=== PATIENT | female | born 1955 | race Caucasian/White ===

== ENCOUNTER 2016-06-01 19:23 | Emergency (ER) | payer SELFPAY ==
[~2016-06-01] VITALS: Ht 157.5 cm; Wt 74.8 kg
[~2016-06-01 19:23] MED LIST: AMT25 PO; ASPI-589 PO; FRCT/ PO; LPT40 PO
[2016-06-01 19:27] VITALS: TEMP 36.8; Ht 157.5 cm; Wt 74.8 kg
[2016-06-01] MEDS ORDERED: ALBUT/IPRATROP 3MG/0.5MG NEB 3 ML VIAL INH STA (19:44)
--- NOTE | 2016-06-01 20:03 | DIAGNOSTIC IMAGING REPORT ---
TWO VIEW CHEST CLINICAL HISTORY: Cough. FINDINGS: PA and lateral chest radiographs are compared to study dated 01/30/2016 and correlated with chest CT dated 08/21/2012. The cardiomediastinal silhouette is unremarkable. Chronic interstitial thickening is similar to previous. There is no airspace consolidation or pleural effusion. Apical scarring is observed. There is no pneumothorax. The skeletal structures are osteopenic. The bony thorax appears intact. IMPRESSION: No active disease in the chest. Electronically signed by: Tommie Sebastian M.D. 06/01/2016 8:01 PM Dictated Date/Time: 06/01/2016 7:58 PM
[2016-06-01] MEDS ORDERED: ALBUTEROL HFA 8 GM INHALER INH STA (20:25)
[2016-06-01] MEDS ORDERED: HYCODAN 60ML BOTTLE HOMEPACK PO ONE (20:30)
[2016-06-01] MEDS ORDERED: AZIT-57 PO (20:30)
[2016-06-01] MEDS ORDERED: PRED50TA PO (20:30)
[2016-06-01] MEDS ORDERED: AZITHROMYCIN 250 MG TAB PO ONE (20:30)
--- NOTE | 2016-06-01 20:33 | EMERGENCY ROOM VISIT NOTE ---
History First contact with patient: 19:35 Chief Complaint: COUGH Stated Complaint: EXCESSIVE COUGH Nursing Triage Summary: Pt c/o dry cough for 2 weeks. History of Present Illness The patient is a 61 year old female who presents to the Emergency Department by private vehicle for evaluation of her "excessive cough". She has had ongoing symptoms of a cough for the past 2 weeks. She is had no significant sputum production. Cough is worse at night. She reports moderate nasal congestion and postnasal drip as well. She reports no pain rating her discomfort a 0/10. She denies any chest pain, palpitations, shortness of breath, hemoptysis, nausea , vomiting, abdominal pain. She reports a history of high cholesterol and migraines. She reports no history of cardiac disease or illness. There is no family history of blood clots or bleeding disorders. She does smoke. She uses no oral contraception. There has been no recent long distance travel. Review of Systems A complete 10-point Review of Systems was discussed with the patient, with pertinent positives and negatives listed in the History of Present Illness. All remaining Review of Systems questions can be considered negative unless otherwise specified. Past Medical/Surgical History Medical Problems: (1) Hypercholesteremia Family History Patient reports no known family medical history. Social History Smoking Status: Current Every Day Smoker Smokeless Tobacco Use: No Drug Use: none Marital Status: Housing Status: lives with family Occupation Status: employed Current/Historical Medications Scheduled Amitriptyline HCl (Amitriptyline HCl), 25 MG PO HS Aspirin (Aspirin Adult Low Dose), 81 MG PO DAILY Atorvastatin (Atorvastatin Calcium), 40 MG PO QPM Azithromycin (Azithromycin), 1 TAB PO DAILY Prednisone (Prednisone), 50 MG PO DAILY Scheduled PRN Acetamin/Butalbital/Caffeine (Fioricet), 1-2 TABS PO Q6H PRN for Headache Allergies Coded Allergies: Lisinopril (Verified Allergy, Unknown, Cough/Chest Tightness, 01/30/16) Sumatriptan (Verified Allergy, Unknown, ANAPHYLAXIS, 01/30/16) Physical Exam Vital Signs Date Time Temp Pulse Resp B/P Pulse Ox O2 Delivery O2 Flow Rate FiO2 06/01/16 20:38 91 18 135/66 95 Room Air 06/01/16 20:11 97 Room Air 06/01/16 19:27 36.8 91 16 138/75 96 Room Air Pain Rating (0-10): 0 Physical Exam VITAL SIGNS - Vital signs and nursing notes were reviewed. GENERAL - Well nourished, well developed 61-year-old female in no acute distress. Pt communicates well with provider and answers questions appropriately. SKIN - Without rash. HEAD - NC/AT with no obvious deformities. EYES - PERRL with EOMI bilaterally. Sclera without injection. Palpebral conjunctiva pink and moist. EARS - No deformities of external structures noted on gross examination bilaterally. No pain elicited with palpation of the tragus bilaterally. External auditory canals without discharge or otorrhea. Tympanic membranes pearly hernandes without retraction or bulging. No fluid or purulent material visualized behind the TM. Handle of malleus, umbo, cone of light, pars tensa/ flaccid all easily visualized. NOSE - Midline and without cyanosis. No purulent drainage noted. Nasal mucosa without mucus discharge. MOUTH/OROPHARYNX - Without perioral cyanosis. Buccal mucosa pink and moist and without leukoplakia. Tongue midline with equal elevation of palate bilaterally. No tonsillar hypertrophy, erythema, or exudates noted. Good dentition noted. NECK - Neck with FROM. Supple to palpation. No lymphadenopathy noted. No nuchal rigidity. LUNGS - Chest wall symmetric without accessory muscle use, intercostals retractions, or central cyanosis. Normal vesicular breath sounds CTA B/L. No wheezes, rales, or rhonchi appreciated. CARDIAC - RRR with S1/S2. No murmur, rubs, or gallops appreciated. ABDOMEN - Abdominal contour obese without pulsations or visible masses. BS normoactive all four quadrants. No tenderness, palpable masses, hepatosplenomegaly, or ascites noted. Medical Decision & Procedures ER Provider Diagnostic Interpretation: Radiological imaging and reports were reviewed by myself. Radiologist's Interpretation as follows: TWO VIEW CHEST CLINICAL HISTORY: Cough. FINDINGS: PA and lateral chest radiographs are compared to study dated 01/30/2016 and correlated with chest CT dated 08/21/2012. The cardiomediastinal silhouette is unremarkable. Chronic interstitial thickening is similar to previous. There is no airspace consolidation or pleural effusion. Apical scarring is observed. There is no pneumothorax. The skeletal structures are osteopenic. The bony thorax appears intact. IMPRESSION: No active disease in the chest. Medications Administered Medications (Trade) Dose Ordered Sig/Kesha Route Start Time Stop Time Status Last Admin Dose Admin Albuterol/ Ipratropium (Duoneb) 3 ml NOW STAT INH 06/01/16 19:44 06/01/16 19:46 DC 06/01/16 20:10 3 ML Azithromycin (Zithromax Tab) 500 mg NOW ONCE PO 06/01/16 20:30 06/01/16 20:31 DC 06/01/16 20:36 500 MG Prednisone (PredniSONE TAB) 60 mg NOW STAT PO 06/01/16 20:25 06/01/16 20:27 DC 06/01/16 20:36 60 MG Albuterol (Ventolin Hfa Inhaler) 2 puffs ONE STAT INH 06/01/16 20:25 06/01/16 20:27 DC 06/01/16 20:36 2 PUFFS Hydrocodone Bit/ Homatropine Methylb (Hycodan Elix Homepack 5/1.5MG/ 5ML) 1 homepack UD ONCE PO 06/01/16 20:30 06/01/16 20:31 DC 06/01/16 20:36 1 HOMEPACK ED Course Patient was seen and evaluated by myself. Chest x-ray was obtained. The patient was treated with 1 DuoNeb. She feels somewhat better at this time. She was provided initial dose of azithromycin as well as prednisone in the emergency department. She was provided an albuterol inhaler as well as Hycodan home pack. The patient was instructed to follow-up with her primary care provider from today's visit. She was educated on worrisome symptoms for return visit to the emergency department. Patient discharged home in good condition. Medical Decision Patient was seen and evaluated by myself. Chest x-ray was obtained. Chest x- ray is found to be unremarkable. The patient responded well to DuoNeb treatment. The patient is a daily smoker. She's had symptoms for the past 2 weeks. The patient was covered with azithromycin prophylactically for her acute bronchitis. She was placed on prednisone. She was provided Hycodan for her nightly cough. The patient is not tachycardic. She is not taking. She's not hypoxic. She has no significant risk factors for PE. The patient's exam is not consistent with this either. The patient will follow closely with her primary care provider from today's visit. She will return for any changing or worsening symptoms. Patient discharged home afebrile and in good condition. In the evaluation and treatment of this patient, the following differential diagnoses were considered: Shoulder Contusion, Shoulder Fracture, Shoulder Dislocation, Thoracic Outlet Syndrome, Adhesive Capsulitis, Rotator Cuff Tear, Proximal Clavicle Head Fracture, Apical Pneumonia, Pneumothorax, Hemothorax, or TB. Impression Primary Impression: Bronchitis Additional Impression: Cough Departure Information Dispostion Home / Self-Care Condition GOOD Prescriptions Prednisone (Prednisone) 50 Mg Tab 50 MG PO DAILY for 4 Days, #4 TAB Prov: Butch Ceja PA-C 06/01/16 Azithromycin (Azithromycin) 250 Mg Tab 1 TAB PO DAILY for 4 Days, #4 TAB Prov: Butch Ceja PA-C 06/01/16 Referrals Romeo Adams M.D. (PCP) Patient Instructions Bronchitis Acute, My [facility] Additional Instructions You've been seen in the emergency department today for your cough - acute bronchitis. Please use the albuterol inhaler 2 puffs every 4-6 hours for the next 3-4 days and then as needed for cough. You were prescribed azithromycin to be taken as prescribed. This is an antibiotic. All antibiotics have the potential to cause diarrhea. Stop this medication and contact a medical provider if you were to develop any significant adverse side effects including: wheezing, shortness of breath, passing out, vomiting, or a diffuse rash. Always take antibiotics as directed and COMPLETE the ENTIRE course regardless of the improvement of your symptoms. Please use the Hycodan cough syrup for nighttime cough. Please do not drive or operate heavy machinery after using this as this medication contains narcotics. You have been prescribed Prednisone 50 mg to be taken orally once a day for the next 4 days. This is an anti-inflammatory medicine to be used to help minimize your symptoms. You should take the COMPLETE course of the medication. For pain control, you can use the following [id number] medicines (if >12 yo): - Regular strength (325mg/tab) Tylenol (acetaminophen) 2 tabs every 4-6 hours as needed. Do not exceed 12 tablets in a 24 hour period. Avoid taking more than 4 grams (4000 mg) of Tylenol per day. This includes any other sources of acetaminophen you may take on a regular basis. - Regular strength (200 mg/tab) Advil (ibuprofen) 1-2 tabs every 4-6 hours as needed. Do not exceed a dose of 3200 mg per day. Follow-up with your primary care provider by the end of the week. Return for any changing or worsening symptoms. Problem Qualifiers
[2016-06-01 20:38] VITALS: BP 135/66; PULSE 91; O2SAT 95
== END 2016-06-01 20:47 | disposition home or self-care (01) ==
LOC: C.EDB 19:24 → C.EDA 20:47
DX: J40 Bronchitis, not specified as acute or chronic (principal); R05 Cough; E78.00 Pure hypercholesterolemia, unspecified; F17.200 Nicotine dependence, unspecified, uncomplicated; Z79.82 Long term (current) use of aspirin